=== PATIENT | female | born 1975 | race Caucasian/White ===

== ENCOUNTER 2017-03-16 18:08 | Emergency (ER) | payer SELFPAY ==
[~2017-03-16 18:08] MED LIST: DENIES HOME MEDS
== END 2017-03-16 19:39 | disposition home or self-care (01) ==
LOC: ER 18:08
DX: L97.429 Non-pressure chronic ulcer of left heel and midfoot with unspecified severity (principal); J30.9 Allergic rhinitis, unspecified; Z88.5 Allergy status to narcotic agent; Z88.1 Allergy status to other antibiotic agents; Z88.8 Allergy status to other drugs, medicaments and biological substances; Z88.0 Allergy status to penicillin
CPT/HCPCS: 99283